=== PATIENT | male | born 1965 | race Caucasian/White ===

== ENCOUNTER 2019-09-26 07:50 | Outpatient (CLI) | payer BC, OTHER ==
[2019-09-26 14:12] LABS: Hemoglobin 13.6 g/dL (14.0-18.0); Mean Corpuscular HGB CONC 33.3 g/dL (32.0-36.0); Mean Corpuscular Hemoglobin 30.7 pg (27.0-31.0); Mean Corpuscular Volume 92.3 fL (78.0-98.0); Mean Platelet Volume 9.2 fL (7.4-10.4); Platelet Count 261 thou/uL (130-400); RBC Distribution Width 13.7 % (11.5-14.5); Red Blood Cell (RBC) Count 4.44 mill/uL (4.70-6.10); White Blood Cell (WBC) Count 10.3 thou/uL (4.8-10.8)
[2019-09-26 15:13] LABS: Anion Gap 16 mmol/L (10-20); BUN (Urea Nitrogen) 27 mg/dL (8.4-25.7); Calc. Creatinine Clearance 0 mL/min (70-130); Calcium 9.3 mg/dL (7.8-10.44); Carbon Dioxide 22 mmol/L (22-29); Chloride 107 mmol/L (98-107); Estimated GFR-MDRD 44; Glucose 105 mg/dL (70-105); Potassium 4.6 mmol/L (3.5-5.1); Sodium 140 mmol/L (136-145)
[2019-09-27 14:02] LABS: SARS-CoV-2 MS2 Positive; SARS-CoV-2 N Gene Negative; SARS-CoV-2 S Gene Negative; SARS-CoV-2 by NAA Not Detected (NotDetected); SARS-CoV-2 orf1ab Negative
== END 2019-09-26 07:51 | disposition home or self-care (01) ==
LOC: LABBT 07:50
PROVIDERS: ATTEND Urology
DX: Z01.812 Encounter for preprocedural laboratory examination (principal); N20.1 Calculus of ureter; Z20.828 Contact with and (suspected) exposure to other viral communicable diseases
CPT/HCPCS: 80048; 85027; 87635; U0003

== ENCOUNTER 2022-12-20 13:18 | Outpatient (CLI) | payer BC ==
[2022-12-20 14:25] LABS: Hematocrit 43.8 % (38.8-50.0); Hemoglobin 14.7 g/dL (13.5-17.5); Mean Corpuscular HGB CONC 33.6 g/dL (32.0-36.0); Mean Corpuscular Hemoglobin 31.8 pg (27.0-33.0); Mean Corpuscular Volume 94.8 fl (81.2-95.1); Mean Platelet Volume 10.8 fl (7.4-10.4); Platelet Count 283 10x3/uL (150-450); Red Blood Cell (RBC) Count 4.62 10x6/uL (4.32-5.72); White Blood Cell (WBC) Count 6.3 10x3/uL (3.5-10.5)
[2022-12-20 15:00] LABS: PTT 30.5 sec (22.0-33.0); Prothrombin Time 10.5 sec (9.5-12.1)
[2022-12-20 15:21] LABS: Anion Gap 13 mmol/L (10-20); BUN (Urea Nitrogen) 19 mg/dL (8.4-25.7); Calc. Creatinine Clearance 0 mL/min (70-130); Calcium 9.5 mg/dL (7.8-10.44); Carbon Dioxide 24 mmol/L (22-29); Chloride 106 mmol/L (98-107); Estimated GFR 55; Glucose 155 mg/dL (70-105); Potassium 4.1 mmol/L (3.5-5.1); Sodium 139 mmol/L (136-145)
== END 2022-12-20 13:19 | disposition home or self-care (01) ==
LOC: LABBT 13:18
PROVIDERS: ATTEND Urology
DX: Z01.818 Encounter for other preprocedural examination (principal); N20.1 Calculus of ureter
CPT/HCPCS: 80048; 85027; 85610; 85730; 87086; 93005; 93010

== ENCOUNTER 2022-12-26 11:59 | Day surgery (SDC) | payer BC ==
[2022-12-20 14:00] VITALS: BMI 31.8
[2022-12-26] MEDS ORDERED: Iopamidol 30 ML ONE (13:32)
[2022-12-26] MEDS ORDERED: Lidocaine 1% PF 5 ML VIAL ONE ×2 (13:33→13:57)
[2022-12-26] MEDS ORDERED: PROPOFOL 20 ML ONE (13:33)
[2022-12-26] MEDS ORDERED: Iopamidol 15 ML ONE (13:37)
[2022-12-26] MEDS ORDERED: CEFAZOLIN 2 GM VIAL ONE (13:41)
[2022-12-26] MEDS ORDERED: Sodium Chloride 0.9% 100 ML ONE (13:41)
[2022-12-26] MEDS ORDERED: PROPOFOL 200 MG/20 ML VIAL ONE (13:57)
[2022-12-26] MEDS ORDERED: Ondansetron PF 4 MG/2 ML Vial ONE ×2 (13:57→14:11)
[2022-12-26] MEDS ORDERED: fentaNYL PF 100 MCG/2 ML SYRINGE ONE (14:00)
== END 2022-12-26 15:47 | disposition home or self-care (01) ==
LOC: SDC 11:59
PROVIDERS: ATTEND Urology
PROC: 0WHR8YZ Insertion of Other Device into Genitourinary Tract, Via Natural or Artificial Opening Endoscopic (ICD-10-PCS; principal; 2022-12-26)
DX: N20.2 Calculus of kidney with calculus of ureter (principal); E11.9 Type 2 diabetes mellitus without complications
CPT/HCPCS: 74420; C1874; J2405; J2704; J3490; Q9967

== ENCOUNTER 2023-01-03 07:55 | Outpatient (CLI) | payer BC | END 2023-01-03 07:56 | disposition home or self-care (01) | LOC: LAB 07:55 | PROVIDERS: ATTEND Urology | DX: Z01.812 Encounter for preprocedural laboratory examination (principal); N20.2 Calculus of kidney with calculus of ureter | CPT/HCPCS: 87086 ==

== ENCOUNTER 2023-01-09 06:48 | Day surgery (SDC) | payer BC ==
[2023-01-03 09:16] VITALS: BMI 30.5
[2023-01-09] MEDS ORDERED: LevoFLOXacin D5W 500 mg (100 mL) BAG ONE (07:39)
[2023-01-09] MEDS ORDERED: Iopamidol 15 ML ONE (10:01)
[2023-01-09] MEDS ORDERED: fentaNYL PF 100 MCG/2 ML SYRINGE ONE (10:10)
[2023-01-09] MEDS ORDERED: PROPOFOL 20 ML ONE (10:10)
[2023-01-09] MEDS ORDERED: Lidocaine 1% PF 5 ML VIAL ONE ×2 (10:11→10:34)
[2023-01-09] MEDS ORDERED: Ondansetron PF 4 MG/2 ML Vial ONE ×2 (10:34→10:47)
[2023-01-09] MEDS ORDERED: PROPOFOL 200 MG/20 ML VIAL ONE (10:34)
[2023-01-09] MEDS ORDERED: Dexamethasone 20 MG/5 ML VIAL ONE (10:34)
[2023-01-09] MEDS ORDERED: Dexamethasone 4 mg/ml Vial ONE (10:47)
[2023-01-09] MEDS ORDERED: fentaNYL 50 mcg/mL 1 mL Vial ONE (11:32)
[2023-01-18 09:14] LABS: CA Oxalate Dihydrate 70 % (.); CA Oxalate Monohydrate 30 % (.); Color Brown (.); Stone Weight 130 mg (.)
== END 2023-01-09 14:30 | disposition home or self-care (01) ==
LOC: SDC 06:48
PROVIDERS: ATTEND Urology
PROC: 0TC18ZZ Extirpation of Matter from Left Kidney, Via Natural or Artificial Opening Endoscopic (ICD-10-PCS; principal; 2023-01-09)
PROC: 0TC08ZZ Extirpation of Matter from Right Kidney, Via Natural or Artificial Opening Endoscopic (ICD-10-PCS; principal; 2023-01-09)
PROC: 0TC78ZZ Extirpation of Matter from Left Ureter, Via Natural or Artificial Opening Endoscopic (ICD-10-PCS; principal; 2023-01-09)
PROC: 0TC68ZZ Extirpation of Matter from Right Ureter, Via Natural or Artificial Opening Endoscopic (ICD-10-PCS; principal; 2023-01-09)
PROC: 0T788DZ Dilation of Bilateral Ureters with Intraluminal Device, Via Natural or Artificial Opening Endoscopic (ICD-10-PCS; principal; 2023-01-09)
DX: N20.2 Calculus of kidney with calculus of ureter (principal); I10 Essential (primary) hypertension; Z79.899 Other long term (current) drug therapy
CPT/HCPCS: 74420; 82365; 88300; C1747; C1769; C2617; J1100; J1956; J2405; J2704; J3010; Q9967